=== PATIENT | male | born 1945 | race Caucasian/White ===

== ENCOUNTER → 2016-03-26 | Outpatient (CLI) | payer OTHER ==
[~2016-03-26] MED LIST: AMB5 PO; ATOR-22 PO; INDA1TAB3 PO
[2016-03-26 15:56] LABS: BASO % 0.6 %; BASO ABS # 0.04 K/uL (0-0.2); COMPLETE YES; EOS % 1.8 %; HEMATOCRIT 42.1 % (42-52); IG% 0.1 %; LYMPH % 27.8 %; LYMPH ABS # 1.89 K/uL (1.2-3.4); MEAN CELL VOLUME 86.6 fL (80-100); MEAN CORPUSCULAR HEMOGLOBIN 30.7 pg (25-34); MEAN CORPUSCULAR HGB CONC 35.4 g/dl (32-36); MEAN PLATELET VOLUME 10.7 fL (7.4-10.4); MONO % 8.1 %; NEUT % 61.6 %; PLATELET COUNT 220 K/uL (130-400); RED BLOOD COUNT 4.86 M/uL (4.7-6.1)
== END | disposition home or self-care (01) ==
LOC: C.LAB1850 14:05
PROVIDERS: ATTEND Internal Medicine
DX: M19.90 Unspecified osteoarthritis, unspecified site (principal)

== ENCOUNTER → 2016-06-16 | Outpatient (CLI) | payer OTHER ==
[2016-06-16 09:24] LABS: BASO % 0.6 %; BASO ABS # 0.04 K/uL (0-0.2); COMPLETE YES; EOS % 2.4 %; HEMATOCRIT 44.2 % (42-52); IG% 0.3 %; LYMPH % 29.9 %; LYMPH ABS # 1.96 K/uL (1.2-3.4); MEAN CELL VOLUME 85.7 fL (80-100); MEAN CORPUSCULAR HEMOGLOBIN 29.7 pg (25-34); MEAN CORPUSCULAR HGB CONC 34.6 g/dl (32-36); MEAN PLATELET VOLUME 10.1 fL (7.4-10.4); MONO % 7.8 %; PLATELET COUNT 195 K/uL (130-400); RED BLOOD COUNT 5.16 M/uL (4.7-6.1); WHITE BLOOD COUNT 6.56 K/uL (4.8-10.8)
[2016-06-16 10:03] LABS: ALT/SGPT 21 U/L (12-78); BLOOD UREA NITROGEN 17 mg/dl (7-18); BUN/CREATININE RATIO 15.4 (10-20); CARBON DIOXIDE 31 mmol/L (21-32); CHLORIDE 107 mmol/L (98-107); CHOLESTEROL 158 mg/dl (0-200); GLUCOSE 109 mg/dl (70-99); POTASSIUM 3.7 mmol/L (3.5-5.1); SODIUM 144 mmol/L (136-145)
[2016-06-16 10:06] LABS: AST/SGOT 10 U/L (15-37); CHOLESTEROL/HDL RATIO 2.6; HDL CHOLESTEROL 61 mg/dl; LDL CHOLESTEROL CALCULATED 69 mg/dl; PROSTATE SPECIFIC ANTIGEN 0.013 ng/ml (0.000-4.000); TRIGLYCERIDES 139 mg/dl (0-150); VERY LOW DENSITY LIPOPROT CALC 28 mg/dl
[2016-06-16 10:28] LABS: URINE APPEARANCE CLEAR (CLEAR); URINE BILIRUBIN NEG (NEG); URINE COLOR YELLOW; URINE NITRITE NEG (NEG); URINE SPECIFIC GRAVITY 1.025 (1.000-1.030); UROBILINOGEN NEG (NEG)
[2016-06-16 10:31] LABS: MANUAL MICROSCOPIC REQUIRED? YES; REVIEW REQ? NO
[2016-06-16 10:36] LABS: URINE BACTERIA NEG (NEG)
[2016-06-16 10:48] LABS: URINE RBC 0-4 /hpf (0-4)
[2016-06-16 11:02] LABS: ESTIMATED AVERAGE GLUCOSE 111 mg/dl; HA1C FLAG Normal (Normal)
== END | disposition home or self-care (01) ==
LOC: C.LAB1850 08:38
PROVIDERS: ATTEND Internal Medicine
DX: Z00.00 Encounter for general adult medical examination without abnormal findings (principal); C61 Malignant neoplasm of prostate; E78.00 Pure hypercholesterolemia, unspecified; M19.90 Unspecified osteoarthritis, unspecified site; I10 Essential (primary) hypertension

== ENCOUNTER → 2016-12-22 | Outpatient (CLI) | payer OTHER ==
[2016-12-22 09:36] LABS: BASO % 0.6 %; BASO ABS # 0.04 K/uL (0-0.2); COMPLETE YES; EOS % 4.3 %; HEMATOCRIT 44.6 % (42-52); IG% 0.1 %; LYMPH ABS # 2.45 K/uL (1.2-3.4); MEAN CELL VOLUME 86.8 fL (80-100); MEAN CORPUSCULAR HEMOGLOBIN 29.8 pg (25-34); MEAN CORPUSCULAR HGB CONC 34.3 g/dl (32-36); MEAN PLATELET VOLUME 10.3 fL (7.4-10.4); MONO % 7.2 %; NEUT % 53.8 %; PLATELET COUNT 207 K/uL (130-400); RED BLOOD COUNT 5.14 M/uL (4.7-6.1); WHITE BLOOD COUNT 7.21 K/uL (4.8-10.8)
[2016-12-22 10:01] LABS: BLOOD UREA NITROGEN 17 mg/dl (7-18); GLUCOSE 113 mg/dl (70-99)
[2016-12-22 10:02] LABS: ALT/SGPT 21 U/L (12-78); AST/SGOT 11 U/L (15-37); BUN/CREATININE RATIO 15.5 (10-20); CALCIUM 9.3 mg/dl (8.5-10.1); CARBON DIOXIDE 29 mmol/L (21-32); CHLORIDE 105 mmol/L (98-107); CHOLESTEROL 150 mg/dl (0-200); POTASSIUM 3.9 mmol/L (3.5-5.1); SODIUM 140 mmol/L (136-145); TRIGLYCERIDES 118 mg/dl (0-150); VERY LOW DENSITY LIPOPROT CALC 24 mg/dl
[2016-12-22 10:06] LABS: CHOLESTEROL/HDL RATIO 2.6; HDL CHOLESTEROL 58 mg/dl; LDL CHOLESTEROL CALCULATED 68 mg/dl; PROSTATE SPECIFIC ANTIGEN 0.016 ng/ml (0.000-4.000)
== END | disposition home or self-care (01) ==
LOC: C.LAB1850 07:21
PROVIDERS: ATTEND Internal Medicine
DX: E78.00 Pure hypercholesterolemia, unspecified (principal)